=== PATIENT | male | born 1970 | race Caucasian/White ===

== ENCOUNTER → 2018-11-17 | Outpatient (CLI) | payer OTHER ==
[2018-11-17 16:02] VITALS: BP 115/90
--- NOTE | 2018-11-17 16:02 | Cardiology Stress Test Report ---
Stress Test Report Date of Procedure/Referring: PCP Hiren Salinas MD Admitting Physician Kelly Chew MD Indications: Chest pain Baseline Heart Rate: 67 Baseline Blood Pressure: Blood Pressure Systolic: 115 Blood Pressure Diastolic: 90 Baseline EKG: Baseline EKG: normal sinus rhythm Summary/Conclusion: Summary: In summary, the patient started exercising with a baseline heart rate, blood pressure and EKG mentioned above Patient was able to exercise for a total of 10 minutes on Tab protocol, 11.5 METs Maximum heart rate 166 Maximum blood pressure 202/81 Stress EKG Minimal nondiagnostic changes Recovery EKG Return to baseline Conclusion: 1. Good exercise tolerance for a total of 10 minutes on Tab protocol, 11.5 METs, achieving 95 percent of maximum expected heart rate 2. Minimal nondiagnostic EKG changes with exercise returned to baseline during recovery 3. No arrhythmia was noted 4. Hypertensive response to exercise 5. Patient had some chest pain during exercise with no EKG changes HIREN SALINAS MD Nov 17, 2018 16:02
== END ==
LOC: CARD 09:52
PROVIDERS: ATTEND Internal Medicine Cardiovascular Disease
DX: R07.9 Chest pain, unspecified (principal); Z82.49 Family history of ischemic heart disease and other diseases of the circulatory system; Z83.3 Family history of diabetes mellitus; Z72.0 Tobacco use; Z82.3 Family history of stroke
CPT/HCPCS: 93017; 93306